=== PATIENT | male | born 1945 | race Caucasian/White ===

== ENCOUNTER 2021-01-06 08:01 | Emergency (ER) | payer MEDICARE, SELFPAY ==
[2021-01-06 08:23] VITALS: BP 178/96; PULSE 56; RESP 17; TEMP 36.8; O2SAT 97
[2021-01-06 08:30] LABS: Appearance Urine UA CLEAR; Bilirubin Urine UA NEGATIVE (NEGATIVE); Color Urine UA YELLOW; Glucose Urine UA NEGATIVE (Negative); Ketones Urine UA NEGATIVE (NEGATIVE); Leukocyte Esterase Urine UA NEGATIVE (NEGATIVE); Nitrite Urine UA NEGATIVE (Negative); Occult Blood Urine UA 1+ (Negative); Protein Urine UA NEGATIVE (Negative); Specific Gravity Urine UA 1.025 (1.000-1.035); Urobilinogen Urine UA 0.2 E.U./dL (0.2)
--- NOTE | 2021-01-06 08:42 | DI.CT.S_ITS ---
PROCEDURE: CT KIDNEY URETER BLADDER (KUB) INDICATIONS: Left-sided flank pain/eval for stone TECHNIQUE: Axial sections were acquired from the lung bases to the pubic symphysis. Coronal and sagittal reformats were performed. For radiation dose reduction, the following was used: automated exposure control, adjustment of mA and/or kV according to patient size. COMPARISON: None. FINDINGS: Image quality: Excellent. Lung bases: Unremarkable. Heart: Heart size is enlarged, no pericardial effusion. Moderate atherosclerotic calcifications are seen. URINARY: Right Kidney: No hydronephrosis. Nonobstructing stones are noted in right kidney measures up to 3 mm in size in midpole of right kidney series 2, image 22. There is a 1 centimeter hyperdense structure seen in anterior cortex of midpole right kidney series 2, image 23. Right Ureter: No hydroureter. Left Kidney: Moderate left-sided hydronephrosis and perinephric fat stranding is seen extending to the level of left UPJ. Nonobstructing left renal calculi are seen measures 2-3 mm in size. Left Ureter: There is no hydroureter or obstructing ureteral stone. Bladder: Partially distended urinary bladder shows mild diffuse bladder wall thickening. A 2-3 mm stone is seen in dependent portion of bladder lumen series 2, image 74. Enlarged prostate gland with significant mass effect on floor of urinary bladder is noted. ABDOMEN: Liver: Calcified granuloma are seen scattered in liver parenchyma. No discrete hepatic lesion is noted. Gallbladder: Within normal limits. Biliary ducts: Unremarkable. Pancreas: Unremarkable. Spleen: Scattered tiny calcified granuloma are seen in splenic parenchyma. Spleen is normal in size. Adrenal Glands: Unremarkable. Stomach and Bowel: There is a small hiatal hernia. No abnormal bowel wall thickening or mesenteric fat stranding. No abscess collection. Appendix is visualized and is within normal limits. Peritoneum: No abnormal intraperitoneal fluid. No free air. Ventral Wall: No hernia. Abdominal Nodes: No enlarged retroperitoneal or mesenteric lymph nodes. Vessels: Aorta and inferior vena cava are normal in size. Moderate atherosclerotic calcifications throughout abdominal aorta is seen. PELVIS: Pelvic Organs: Enlarged prostate gland as above. Pelvic Nodes: Unremarkable. Miscellaneous: No inguinal hernias are seen. Bones: Minimal anterolisthesis of L4 on L5 is seen. No vertebral body compression fracture. No suspicious bony lesion. IMPRESSION: 1. Finding is suggestive of a passed 3 mm left renal stone with moderate residual left-sided hydronephrosis and perinephric fat stranding. No hydroureter. 2. Bilateral nonobstructing renal calculi. No right-sided renal stone or hydronephrosis. 3. Diffuse bladder wall thickening, no discrete bladder wall mass. Enlarged prostate gland with mass effect on floor of urinary bladder. 4. Normal appendix. No bowel obstruction. No free fluid or free air. Small hiatal hernia. 5. Suggestion of prior granulomatous infection with small calcified granulomas scattered in liver and spleen. Dictated by: Raghavendra Marsh M.D. on 01/06/2021 at 9:22 Approved by: Raghavendra Marsh M.D. on 01/06/2021 at 9:44
--- NOTE | 2021-01-06 08:42 | ED_ITS ---
HPI - General Adult General Chief complaint: Urogenital-Male Stated complaint: Kidney ablasion-pain reoccuring/blood in urine Time Seen by Provider: 01/06/21 08:24 Source: patient Mode of arrival: Ambulatory History of Present Illness HPI narrative: Patient is a 75-year-old male. 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 This was done under radiologic guidance. He did not have a nephrectomy. Has not had any issues since then until Sunday where he did notice he had some blood in his urine. This only lasted for less than 24 hours and then completely resolved. This morning he had a gradual onset of left-sided flank/abdominal discomfort. Did not get worse or better with urinating. He did not have blood in his urine today. No fevers. No change in bowel habits. No skin changes. No abdominal pain. Not worse with palpation or movement. Has never had a diagnosed kidney stone in the past. Related Data Home Medications Medication Instructions Recorded Confirmed allopurinol 300 mg tablet 300 mg PO DAILY 01/06/21 01/06/21 carvedilol 6.25 mg tablet 6.25 mg PO BID 01/06/21 01/06/21 pravastatin 80 mg tablet 80 mg PO BEDTIME 01/06/21 01/06/21 tamsulosin 0.4 mg capsule 0.4 mg PO DAILY 01/06/21 01/06/21 Allergies Allergy/AdvReac Type Severity Reaction Status Date / Time hydrocodone Allergy Palpitation Verified 01/06/21 08:27 s Review of Systems Constitutional Comments: No fevers Cardiovascular Comments: No chest pain Respiratory Comments: No shortness of breath Gastrointestinal Gastrointestinal: Reports as per HPI Genitourinary Genitourinary: Reports as per HPI Musculoskeletal Musculoskeletal: Reports as per HPI Integumentary/Breasts Skin/Breast: Reports system reviewed and no additional complaints, except as documented Neurologic Neurologic: Reports system reviewed and no additional complaints, except as documented Hematologic/Lymphatic On Anticoagulants: No Patient History Medical History Neoplasm of left kidney Social History Smoking Status: Never smoker Smoking Status: Never smoker alcohol intake frequency: 0-2 drinks per day Substance Use Type: does not use Exam Initial Vital Signs Initial Vital Signs: Vital Signs Temperature 98.2 F 01/06/21 08:23 Pulse Rate 56 L 01/06/21 08:23 Respiratory Rate 17 01/06/21 08:23 Blood Pressure 178/96 H 01/06/21 08:23 Pulse Oximetry 97 01/06/21 08:23 Const General: cooperative and healthy appearing [facility] Head: normal to inspection and normocephalic Eyes General: appearance normal, both eyes and all related structures Resp Effort & Inspection: normal respiratory effort Cardio Rate: regular rate GI Inspection: normal to inspection Palpation: soft, No firm and No tender Back/Spine/Pelvis Back: No CVA tenderness Skin General: no rashes or lesions noted Neuro General: patient alert, patient awake, patient oriented x3 and moves all extremities Extrem General: normal to inspection and capillary refill normal Psych Appearance: grossly normal and well kempt Course Orders Ordered: ED Orders 01/06/21 08:20 Urinalysis and Microscopic Stat 01/06/21 08:42 CT kidney ureter bladder (KUB) Stat 01/06/21 09:10 Complete Blood Count AUTO DIFF Stat Comprehensive Metabolic Panel Stat Lipase Stat Discontinued Medications Ketorolac Tromethamine (Ketorolac 30 Mg/Ml Vial) 30 mg IV NOW ONE Stop: 01/06/21 09:19 Last Admin: 01/06/21 09:23 Dose: 30 mg Documented by: PRISCILLA Vital Signs Vital signs: Vital Signs - 8 hr 01/06/21 08:23 01/06/21 09:41 01/06/21 09:42 Temperature 98.2 F Pulse Rate 56 L 75 74 Respiratory Rate 17 Blood Pressure 178/96 H 126/72 Pulse Oximetry 97 90 L 99 Medical Decision Making Lab Data Result diagrams: 01/06/21 09:10 01/06/21 09:10 Labs: Lab Results 01/06/21 01/06/21 01/06/21 Range/Units 08:20 09:10 09:10 WBC 4.8 (4.5-11.0) X10^3/uL RBC 4.45 L (4.5-5.9) X10^6/uL Hgb 14.4 (13.5-17.5) g/dL Hct 43.3 (41-53) % MCV 97.2 (80-100) fL MCH 32.3 (26-34) PG MCHC 33.2 (30-36) % RDW 14.0 (11.6-14.8) % Plt Count 219 (150-400) X10^3/uL Neut % (Auto) 56.8 (50-75) % Lymph % (Auto) 31.1 (25-40) % [place] % (Auto) 8.9 (3-14) % Eos % (Auto) 2.0 (2-4) % Baso % (Auto) 1.2 (0-2) % Neut # (Auto) 2700 (8202-0153) /uL Lymph # (Auto) 1500 (6666-6913) /uL [place] # (Auto) 400 (0-900) /uL Eos # (Auto) 100 (0-450) /uL Baso # (Auto) 100 (0-100) /uL Sodium 138 (137-145) mmol/L Potassium 4.7 (3.4-5.1) mmol/L Chloride 105 (98-107) mmol/L Carbon Dioxide 25 (22-32) mmol/L BUN 21 H (9-20) mg/dL Creatinine 0.90 (0.66-1.25) mg/dL Estimated GFR > 60.0 (>60) mL/min BUN/Creatinine Ratio 23.3 H (6-22) Glucose 162 H (80-110) mg/dL Calcium 9.0 (8.4-10.2) mg/dL Total Bilirubin 0.8 (0.2-1.3) mg/dL AST 32 (17-59) IU/L ALT 23 (<50) IU/L Alkaline Phosphatase 65 (38-126) U/L Total Protein 7.2 (6.3-8.2) g/dL Albumin 4.3 (3.5-5.0) g/dL Globulin 2.9 (1.7-4.1) g/dL Albumin/Globulin Ratio 1.5 (1.0-2.8) Lipase 175 (23-300) U/L Urine Color Yellow Urine Appearance Clear Urine pH 6.0 (4.5-8.0) Ur Specific [place] 1.025 (1.000-1.035) Urine Protein Negative (Negative) Urine Glucose (UA) Negative (Negative) g/dL Urine Ketones Negative (NEGATIVE) Urine Occult Blood 1+ H (Negative) Urine Nitrate Negative (Negative) Urine Bilirubin Negative (NEGATIVE) Urine Urobilinogen 0.2 (0.2) E.U./dL Ur Leukocyte Esterase Negative (NEGATIVE) Urine RBC 1-5/hpf (0-5/HPF) Urine WBC 1-5/hpf (0-5/HPF) Urine Bacteria Few (2-10) H (None) Urine Mucus 1+ H (Negative) Ur Culture Indicated? Cult not indicated Imaging Data CT scan - abdomen/pelvis: Radiologist's Impression: [address] [address] [address] Scan Report Signed Patient: Gualberto Blakely MR#: [id number] : 1945 Acct:[id number] Age/Sex: 75 / M Date of Service: 01/06/21 Loc: ED Accession Number: [id number] ?? Procedure: CT kidney ureter bladder (KUB) Ordering Provider: Yordan Agarwal D.O. PROCEDURE:? CT KIDNEY URETER BLADDER (KUB) ? INDICATIONS:? Left-sided flank pain/eval for stone ? TECHNIQUE:? Axial sections were acquired from the lung bases to the pubic symphysis.? Coronal and sagittal reformats were performed.? For radiation dose reduction, the following was used: ?automated exposure control, adjustment of mA and/or kV according to patient size.? ? COMPARISON:? ? None. ? FINDINGS:? Image quality:? Excellent.? ? Lung bases:? Unremarkable.? ? Heart:? Heart size is enlarged, no pericardial effusion.? Moderate ather osclerotic calcifications are seen.? ? URINARY: Right Kidney:? No hydronephrosis.? Nonobstructing stones are noted in right kidney measures up to 3 mm in size in midpole of right kidney series 2, image 22.? There is a 1 centimeter hyperdense structure seen in anterior cortex of midpole right kidney series 2, image 23. Right Ureter:? No hydroureter. ? Left Kidney:? Moderate left-sided hydronephrosis and perinephric fat stranding is seen extending to the level of left UPJ.? Nonobstructing left renal calculi are seen measures 2-3 mm in size. Left Ureter:? There is no hydroureter or obstructing ureteral stone. ? Bladder:? Partially distended urinary bladder shows mild diffuse bladder wall thickening. ?A 2-3 mm stone is seen in dependent portion of bladder lumen series 2, image 74.? Enlarged prostate gland with significant mass effect on floor of urinary bladder is noted. ? ABDOMEN: Liver:? Calcified granuloma are seen scattered in liver parenchyma.? No discrete hepatic lesion is noted. Gallbladder:? Within normal limits. Biliary ducts:? Unremarkable.? ? Pancreas:? Unremarkable.? ? Spleen:? Scattered tiny calcified granuloma are seen in splenic parenchyma.? Spleen is normal in size. Adrenal Glands:? Unremarkable.? ? ? Stomach and Bowel:? There is a small hiatal hernia.? No abnormal bowel wall thickening or mesenteric fat stranding.? No abscess collection.? Appendix is visualized and is within normal limits.? Peritoneum:? No abnormal intraperitoneal fluid.? No free air.? ? Ventral Wall: ? No hernia.? Abdominal Nodes:? No enlarged retroperitoneal or mesenteric lymph nodes.? Vessels:? Aorta and inferior vena cava are normal in size.? Moderate atherosclerotic calcifications throughout abdominal aorta is seen. ? PELVIS: Pelvic Organs:? Enlarged prostate gland as above. Pelvic Nodes: Unremarkable. Miscellaneous: No inguinal hernias are seen. ? ? ? Bones:? Minimal anterolisthesis of L4 on L5 is seen.? No vertebral body compression fracture.? No suspicious bony lesion. ? IMPRESSION:? ? 1.? Finding is suggestive of a passed 3 mm left renal stone with moderate residual left-sided hydronephrosis and perinephric fat stranding.? No hydroureter. 2. Bilateral nonobstructing renal calculi.? No right-sided renal stone or hydronephrosis. ? 3.? Diffuse bladder wall thickening, no discrete bladder wall mass.? Enlarged prostate gland with mass effect on floor of urinary bladder. 4. Normal appendix.? No bowel obstruction.? No free fluid or free air.? Small hiatal hernia. 5. Suggestion of prior granulomatous infection with small calcified granulomas scattered in liver and spleen. ? ? Dictated by: Raghavendra Marsh M.D. on 01/06/2021 at 9:22 ? ? Approved by: Raghavendra Marsh M.D. on 01/06/2021 at 9:44 MDM Narrative Medical decision making narrative: CT scan does show a stone in the bladder which is most consistent with his presenting symptoms. Urinalysis does not show any signs of infection. Kidney function is unremarkable. Patient is asymptomatic currently. Unsure if this was the Toradol or potentially the stone that has passed into his bladder from the ureter. Will discharge home. He was given return precautions and follow-up instructions. He expressed understanding and agreement. Discharge Plan Departure Patient Disposition: Home Clinical Impression: Kidney stone on left side Instructions: DI for Kidney Stones Activity Restrictions/Additional Instructions: The CT scan today does show a 3 mm stone in the bladder. I suspect that this is passed from the ureter on the left side and was the cause of your symptoms that you presented with today. Be sure to increase your fluid intake. Contact your primary doctor for follow-up. Your kidney function today is unremarkable in you have no signs of a urinary tract infection. Return to the emergency department for any new or worsening symptoms. Prescriptions: No Action carvedilol 6.25 mg tablet 6.25 mg PO BID RF: 0 pravastatin 80 mg Tablet 80 mg PO BEDTIME RF: 0 tamsulosin 0.4 mg Capsule 0.4 mg PO DAILY RF: 0 allopurinol 300 mg tablet 300 mg PO DAILY RF: 0
[2021-01-06 08:57] LABS: Bacteria Urine Few (2-10); RBC Urine 1-5/HPF (0-5/HPF); WBC Urine 1-5/HPF (0-5/HPF)
[2021-01-06 08:58] LABS: Culture Indicated Urine Cult Not Indicated; Mucus Urine 1+ (Negative)
[2021-01-06] MEDS: KETOROLAC 30 MG/ML VIAL IV (09:23)
--- NOTE | 2021-01-06 09:23 | PC.NURSE ---
Sudden increase in left flank pain. patient reports he thinks he has had a kidney stone before. Dr. Agarwal aware. Tordaol ordered.
[2021-01-06 09:25] LABS: Add Manual Diff / Slide Review NO; Basophils Absolute Auto 100 /uL (0-100); Basophils Percent Auto 1.2 % (0-2); Eosinophils Absolute Auto 100 /uL (0-450); Hematocrit 43.3 % (41-53); Hemoglobin 14.4 g/dL (13.5-17.5); Lymphocytes Absolute Auto 1500 /uL (1100-4500); Lymphocytes Percent Auto 31.1 % (25-40); Mean Corpuscular HGB Conc 33.2 % (30-36); Mean Corpuscular Hemoglobin 32.3 PG (26-34); Mean Corpuscular Volume 97.2 fL (80-100); Monocytes Absolute Auto 400 /uL (0-900); Monocytes Percent Auto 8.9 % (3-14); Neutrophils Absolute Auto 2700 /uL (1500-7000); Neutrophils Percent Auto 56.8 % (50-75); Platelet Count 219 X10^3/uL (150-400); Red Blood Cell Count 4.45 X10^6/uL (4.5-5.9); White Blood Cell Count 4.8 X10^3/uL (4.5-11.0)
[2021-01-06 09:41] VITALS: PULSE 75; O2SAT 90
[2021-01-06 09:42] VITALS: BP 126/72; PULSE 74; O2SAT 99
[2021-01-06 09:50] LABS: Alanine Aminotransferase 23 IU/L (<50); Albumin 4.3 g/dL (3.5-5.0); Albumin Globulin Ratio 1.5 (1.0-2.8); Alkaline Phosphatase 65 U/L (38-126); Aspartate Aminotransferase 32 IU/L (17-59); BUN Creatinine Ratio 23.3 (6-22); Bilirubin Total 0.8 mg/dL (0.2-1.3); Blood Urea Nitrogen 21 mg/dL (9-20); Carbon Dioxide 25 mmol/L (22-32); Chloride 105 mmol/L (98-107); Estimated Glomerular Filt Rate > 60.0 mL/min (>60); Globulin 2.9 g/dL (1.7-4.1); Glucose 162 mg/dL (80-110); HEMOLYSIS < 15 (0-50); Lipase 175 U/L (23-300); Potassium 4.7 mmol/L (3.4-5.1); Sodium 138 mmol/L (137-145); Total Protein 7.2 g/dL (6.3-8.2)
--- NOTE | 2021-01-06 10:06 | PC.NURSE ---
Given urinal and strainers upon discharge.
== END 2021-01-06 10:06 | disposition home or self-care (01) ==
PROVIDERS: Emergency Provider Emergency Medicine
DX: N20.0 Calculus of kidney (principal)
CPT/HCPCS: 36415; 74176; 80053; 81001; 83690; 85025; 96374; 99284; J1885